=== PATIENT | male | born 1990 | race American Indian/Alaskan Native ===

== ENCOUNTER 2021-03-14 07:31 | Emergency (ER) | payer MEDICAID, OTHER, SELFPAY ==
[2021-03-14 07:35] VITALS: BP 144/104; PULSE 100; RESP 16; TEMP 36.7; O2SAT 99
--- NOTE | 2021-03-14 07:41 | ED.SKABFB ---
HPI - Skin/Abscess/Foreign Bdy General Chief complaint: Skin/Abscess/Foreign Body Stated complaint: Thinks spider bite on leg. Swollen/painful Time Seen by Provider: 03/14/21 07:34 History of Present Illness HPI narrative: Patient is a 30-year-old male history of IVDA, but currently on Suboxone and no recent injections presenting with right thigh redness and swelling. Has been there for the last 3 days becoming quite painful no fever or chills. States that he is no longer injecting and certainly did not area. Related Data Previous Rx's Medication Instructions Recorded sulfamethoxazole 800 1 tab PO BID 7 Days #14 tab 03/14/21 mg-trimethoprim 160 mg tablet (Bactrim DS) Allergies Allergy/AdvReac Type Severity Reaction Status Date / Time No Known Drug Allergies Allergy Verified 03/14/21 07:47 Review of Systems Review of Systems Narrative: GENERAL: Denies chills,fever HEENT: Denies throat pain RESPIRATORY: Denies dyspnea, cough, wheezing CARDIOVASCULAR: Denies chest pain, palpitations GASTROINTESTINAL: Denies nausea, vomiting MUSCULOSKELETAL: Denies extremity pain, injury SKIN: See HPI NEUROLOGIC: Denies weakness, dizziness, headache, numbness 8 point review of systems is negative except for those stated above and HPI Patient History Social History Smoking Status: Former smoker Exam Initial Vital Signs Initial Vital Signs: Vital Signs Temperature 98.1 F 03/14/21 07:35 Pulse Rate 100 H 03/14/21 07:35 Respiratory Rate 16 03/14/21 07:35 Blood Pressure 144/104 H 03/14/21 07:35 Pulse Oximetry 99 03/14/21 07:35 GENERAL: Well-appearing, well-nourished and in no acute distress. CARDIOVASCULAR: peripheral pulses in tact, cap refill <2 sec RESPIRATORY: No respiratory distress, speaks in full sentences without difficulty EXTREMITIES: Normal range of motion, no clubbing or edema. Neurovascularly intact NEUROLOGICAL: Cranial nerves II through XII grossly intact. Normal gait and speech. SKIN: Right anterior thigh erythema that measures 20 cm x 6 cm no fluctuation but scabbed area in the center no drainage. Very sensitive tender to touch Course Vital Signs Vital signs: Vital Signs - 8 hr 03/14/21 07:35 03/14/21 07:54 Temperature 98.1 F Pulse Rate 100 H 90 Respiratory Rate 16 18 Blood Pressure 144/104 H Pulse Oximetry 99 100 MDM - Skin/Abscess/Foreign Bdy MDM Narrative Medical decision making narrative: At this time not ready for I and D. Looks like cellulitis. Will start him on antibiotics. I educated him on warm compresses and abscess may develop and need to be opened. Discharge Plan Departure Patient Disposition: Home Clinical Impression: Cellulitis of right thigh Instructions: DI for Cellulitis -- Adult Activity Restrictions/Additional Instructions: *You have been diagnosed with right leg cellulitis *What to do: Recommend warm compresses, monitor. Over the next few days it may elevate and need to be opened however not at this time. *Continue to take medications as directed Bactrim 1 tablet twice a day for 7 days *Follow up with your primary care provider in 2-3 days or call [phone] *Return to ER if you should have increasing redness, fever, swelling or any new, worsening or concerning symptoms Prescriptions: New sulfamethoxazole-trimethoprim [Bactrim DS] 800-160 mg tablet 1 tab PO BID 7 Days Qty: 14 0RF
[2021-03-14 07:54] VITALS: PULSE 90; RESP 18; O2SAT 100
== END 2021-03-14 07:59 | disposition home or self-care (01) ==
PROVIDERS: Emergency Provider Emergency Medicine
DX: L03.115 Cellulitis of right lower limb (principal); Z87.891 Personal history of nicotine dependence
CPT/HCPCS: 99281

== ENCOUNTER 2021-04-03 18:44 | Emergency (ER) | payer MEDICAID, OTHER, SELFPAY ==
--- NOTE | 2021-04-03 19:02 | ED_ITS ---
HPI - Abdominal Pain General Chief Complaint: Skin/Abscess/Foreign Body Stated Complaint: stomach pains Time Seen by Provider: 04/03/21 18:46 History of Present Illness HPI narrative: 30-year-old male smoker and IV drug abuser (Z methamphetamines close (presents with a chief complaint itchy and sometimes painful skin excoriations on his abdomen. He has been seen and evaluated under similar circumstances and treated for cellulitis or abscess. He denies any chest pain or shortness of breath. He has had no fever or chills. He denies any nausea, vomiting or diarrhea. Related Data Previous Rx's Medication Instructions Recorded doxycycline hyclate 100 mg tablet 100 mg PO BID #20 tab 04/03/21 Allergies Allergy/AdvReac Type Severity Reaction Status Date / Time No Known Drug Allergies Allergy Verified 03/14/21 07:47 Review of Systems Review of Systems Narrative: GENERAL: Denies chills, fatigue, malaise, fever, sweats. HEENT: Denies sinus pain, ear pain, sore throat, difficulty swallowing, dizziness. RESPIRATORY: Denies dyspnea, cough, wheezing, hemoptysis, sputum. CARDIOVASCULAR: Denies chest pain, palpitations, orthopnea, edema, GASTROINTESTINAL: Denies nausea, vomiting, abdominal pain, diarrhea, constipation, melena. : Denies dysuria, frequency, incontinence, hematuria, urinary retention. MUSCULOSKELETAL: denies weakness, joint pain, or bony pain SKIN: See HPI NEUROLOGIC: Denies weakness, headache, numbness, change in speech, confusion, seizures, incoordination. PSYCHIATRIC: No concerning psychosocial issues. 12 point review of systems is negative except for those stated above Patient History Social History Smoking Status: Former smoker Smoking Status: Former smoker alcohol intake frequency: 0-2 drinks per day Substance Use Type: former substance user Exam Narrative Exam Narrative: GEN: AOx3 and in mild distress EYES: Pupils are equal, round, and reactive to light and accommodation. Extraoccular muscles are intact bilaterally. There is no subconjunctival hemorrhage or exudate. CHEST: Lungs are clear to auscultation bilaterally and free of wheezes, rales, or rhonchi. Heart rate is regular rhythm, there are no murmurs, clicks, rubs, or gallops. There is no chest wall tenderness. ABD: Abdomen is soft and nontender. There is no guarding or rebound. Bowel sounds are normal in all 4 quadrants. There is no mass or organomegaly. EXT: Full painless ROM of all extremities with no loss of sensation or strength. SKIN: Few superficial excoriations on anterior abdomen with minimal surrounding erythema, no drainage, induration or fluctuance to suggest abscess that would require incision and drainage Initial Vital Signs Initial Vital Signs: Vital Signs Temperature 97.7 F 04/03/21 19:06 Pulse Rate 91 H 04/03/21 19:06 Respiratory Rate 14 04/03/21 19:06 Blood Pressure 153/99 H 04/03/21 19:06 Pulse Oximetry 99 04/03/21 19:06 Course Orders Ordered: Discontinued Medications Doxycycline Hyclate (Doxycycline Hyclate 100 Mg Tablet) 100 mg PO NOW ONE Stop: 04/03/21 20:05 Last Admin: 04/03/21 20:08 Dose: 100 mg Documented by: JOSE E Discharge Plan Departure Patient Disposition: Home Clinical Impression: Cellulitis, Abscess of skin or subcutaneous tissue Instructions: DI for Wound Infection Activity Restrictions/Additional Instructions: *You have been diagnosed with [Skin excoriations and cellulitis ] *What to do: *Please continue to take your regular medications as directed. [ x] New medication prescriptions sent to your pharmacy: [[facility] ] [ ] New medication written as a paper prescription [ ] No new medications given *Please follow up with your primary care provider in 2-3 days, call for an appointment. Let them know you were seen in the Emergency Department and that we ask that you be seen in follow up. We will electronically transmit a record of today's note if your PCP is in our system *If you do not have a primary care provider please contact the [facility] Resource line at [phone]. They will ask some questions about your medical history and help get you set up with a doctor in the community. *Return to Emergency Department if you should have any new, worsening or concerning symptoms, such as [fever greater than 101 F, shaking chills, worsening pain, persistent vomiting or other bothersome symptoms] Prescriptions: New doxycycline hyclate 100 mg tablet 100 mg PO BID Qty: 20 0RF
[2021-04-03 19:06] VITALS: BP 153/99; PULSE 91; RESP 14; TEMP 36.5; O2SAT 99; BMI 28.0
[2021-04-03 19:19] VITALS: BMI 28.0
[2021-04-03 19:42] VITALS: BP 153/99; PULSE 91; RESP 14; TEMP 36.5; O2SAT 99; BMI 28.0
[2021-04-03] MEDS: DOXYCYCLINE HYCLATE 100 MG TABLET PO (20:08)
[2021-04-03 20:19] VITALS: BP 130/78; PULSE 66; RESP 14; O2SAT 100
== END 2021-04-03 20:23 | disposition home or self-care (01) ==
PROVIDERS: Emergency Provider Emergency Medicine
DX: L03.311 Cellulitis of abdominal wall (principal); L02.211 Cutaneous abscess of abdominal wall; Z87.891 Personal history of nicotine dependence
CPT/HCPCS: 99282; 99283

== ENCOUNTER 2022-06-27 01:00 | Emergency (ER) | payer MEDICAID, OTHER, SELFPAY ==
[2022-06-27 01:05] VITALS: BP 140/81; PULSE 89; RESP 16; TEMP 36.6; O2SAT 98; BMI 32.5
[2022-06-27 01:12] VITALS: PULSE 89; O2SAT 98
[2022-06-27 01:14] VITALS: BP 134/85; PULSE 81; RESP 15; O2SAT 98
[2022-06-27 01:30] VITALS: PULSE 81; RESP 15; O2SAT 96
--- NOTE | 2022-06-27 01:31 | ED.ARRPALP ---
HPI - Arrhythmia/Palpitations General Chief Complaint: Arrhythmia/Palpitations Stated Complaint: heart flutters, Time Seen by Provider: 06/27/22 01:13 Source: patient Mode of arrival: Ambulatory History of Present Illness HPI narrative: Patient is a 31-year-old male. He states he is a recovering opioid addict and been clean for almost a year. Approximately 1 week ago he relapsed for 1 day in did use fentanyl. Since that time he states he is not felt very well. Has had some nausea and lightheadedness. He is also had occasional episodes where he is feeling like his heart is beating fast. It lasts for only minutes and then resolves. He is get somewhat lightheaded with it. He is currently not having the symptoms. Has not tried anything for the symptoms prior to arrival. Related Data Previous Rx's Medication Instructions Recorded doxycycline hyclate 100 mg tablet 100 mg PO BID #20 tabs 04/03/21 Allergies Allergy/AdvReac Type Severity Reaction Status Date / Time No Known Drug Allergies Allergy Verified 03/14/21 07:47 Review of Systems Cardiovascular Cardiovascular: Reports system reviewed and no additional complaints, except as documented Respiratory Respiratory: Reports system reviewed and no additional complaints, except as documented Neurologic Neurologic: Reports system reviewed and no additional complaints, except as documented Hematologic/Lymphatic On Anticoagulants: No Patient History Medical History Opioid abuse Social History Smoking Status: Former smoker Smoking Status: Former smoker tobacco type: cigarettes alcohol intake frequency: 0-2 drinks per day Alcohol type: hard liquor Substance Use Type: former substance user Exam Initial Vital Signs Initial Vital Signs: Vital Signs Temperature 98 F 06/27/22 01:05 Pulse Rate 89 06/27/22 01:05 Respiratory Rate 16 06/27/22 01:05 Blood Pressure 140/81 06/27/22 01:05 Pulse Oximetry 98 06/27/22 01:05 Oxygen Delivery Method Room Air 06/27/22 01:05 Const General: cooperative, comfortable and No ill appearing HENMT Head: normal to inspection and normocephalic Resp Effort & Inspection: normal respiratory effort Auscultation: clear to auscultation bilaterally Cardio Rate: regular rate Rhythm: regular rhythm Skin General: no rashes or lesions noted Neuro General: patient alert, patient awake and moves all extremities Extrem General: capillary refill normal Course Orders Ordered: ED Orders 06/27/22 01:14 EKG-12 Lead Stat Vital Signs Vital signs: Vital Signs - 8 hr 06/27/22 01:05 Temperature 98 F Pulse Rate 89 Respiratory Rate 16 Blood Pressure 140/81 Pulse Oximetry 98 Oxygen Delivery Method Room Air MDM - Arrhythmia/Palpitations ECG Data Attestation: I personally reviewed and interpreted this ECG as follows: Interpretation: Sinus rhythm Ventricular rate is 76 Normal axis Normal QRS Normal QTC No ST T wave changes MDM Narrative Medical decision making narrative: Patient is not currently having the symptoms. His last use of fentanyl was 1 week ago and I suspect that his symptoms today are not related to his use of this. Sinus rhythm on his EKG without ectopy. Normal exam. Will hold on further workup for now and have him contact his primary doctor to discuss the indications for a Holter monitor. He was given return precautions. He expressed understanding and agreement. Discharge Plan Departure Patient Disposition: Home Clinical Impression: Palpitations Instructions: Arrhythmias Activity Restrictions/Additional Instructions: I recommend that you contact your primary doctor for follow-up to discuss the indications for what is called a Holter monitor. This will help your primary doctor further evaluate the palpitations that you were having. Return to the emergency department for any new or worsening symptoms like we discussed. Prescriptions: No Action doxycycline hyclate 100 mg tablet 100 mg PO BID Qty: 20 0RF Stand Alone Forms: Patient Portal/API
[2022-06-27 01:42] VITALS: BP 127/75; PULSE 77; RESP 19; O2SAT 96
== END 2022-06-27 01:46 | disposition home or self-care (01) ==
PROVIDERS: Emergency Provider Emergency Medicine
DX: R00.2 Palpitations (principal)
CPT/HCPCS: 93005; 99281; 99283